=== PATIENT | female | born 1960 | race Two or more races ===

== ENCOUNTER 2016-11-15 15:28 | Emergency (ER) | payer BC ==
--- NOTE | ~2016-11-15 | CT2 ---
[facility] A Service of [facility] RADIOLOGY TEXT RESULTS PATIENT: VANESSA CARR LOCATION: [facility] : 56 UNIT #: [id number] AGE: [address]: Benito Chowdhury DO SEX: F ORDER DR: [id number] [facility] [address] [place], [place] [address] [id number] MR#: [id number] Acc #: [id number] NAME: VANESSA CARR : 1960 SEX: F STUDY DATE/TIME: 11/15/2016 17:55 UNIT: [facility] ROOM: STUDY DESCRIPTION: CT Abd and Pelv W Cont Attending Physician: Benito Chowdhury D.O. Ordering Physician: Benito Chowdhury D.O. Primary Care Physician: Primary Care Physician No MEDICAL IMAGING REPORT This report is preliminary unless electronic signature is present EXAM CT scan of the abdomen and pelvis with contrast, 11/15/2016 HISTORY Left side abdominal pain extending to the back for 3 days with vomiting. TECHNIQUE Spiral CT was performed through the abdomen and pelvis following intravenous contrast administration only as per clinician request. This CT exam was performed with one or more of the following radiation dose reduction techniques: automatic exposure control, adjustment of mA and/or kV according to patient size, and iterative reconstruction. FINDINGS ABDOMEN: The exam is limited by the lack of oral contrast. There is no prior exam for comparison. The liver contains multiple low-density lesions characteristic of cysts. The spleen, pancreas, gallbladder and biliary tree, adrenal glands and kidneys are normal except for a small cyst on the left kidney. PELVIS FINDINGS: The gut, mesenteric and yazmin structures are normal. There is no free fluid in the abdomen or pelvis. The lung bases are normal. IMPRESSION Multiple hepatic cysts and a left renal cyst. Otherwise negative CT scan of the abdomen and pelvis. Exam is somewhat limited by the lack of oral contrast. Dictated by... [facility] A Service [facility] RADIOLOGY TEXT RESULTS PATIENT: VANESSA CARR LOCATION: [facility] : 56 UNIT #: [id number] AGE: [address]: Benito Chowdhury DO SEX: F ORDER DR: Vladislav Blackmon M.D. THIS IS AN ELECTRONICALLY VERIFIED REPORT Vladislav Blackmon M.D. at 11/16/2016 10:28 AM KELTON/marcial TD: 11/15/2016 22:57 JOB #: [id number] MEDICAL IMAGING REPORT Page 1 of 1 COPY
--- NOTE | ~2016-11-15 | EKG ---
PATIENT: VANESSA CARR UNIT #: [id number] Ventricular Rate: 76 BPM Atrial Rate: 76 BPM P-R Interval: 164 ms QRS Duration: 70 ms Q-T Interval: 372 ms QTC Calculation(Bezet): 418 ms P [place]: 59 degrees Calculated R [place]: -4 degrees Calculated T [place]: 22 degrees Diagnosis Line: Normal sinus rhythm Diagnosis Line: Normal ECG Diagnosis Line: Diagnosis Line: Confirmed by CARLTON AVERY MD ([id number]) on 11/16/2016 Diagnosis Line: 10:38:23 PM INTERPRETING MD: GENA HOPE
[~2016-11-15 15:28] MED LIST: PHENERGAN25 MG PO; PRILOSEC20 MG DOB
[2016-11-15 15:47] LABS: BASOPHIL% 0.7 % (0-2.5); EOSINOPHIL# 0.3 X10e3 (0-0.7); EOSINOPHIL% 5.5 % (0.0-7.0); HEMATOCRIT 42.1 % (35.0-45.0); HEMOGLOBIN 13.9 gm/dL (12.0-16.0); MEAN CELL VOLUME 87.2 FL (83-96); MEAN CORPUSCULAR HEMOGLOBIN 28.9 PG (28-34); MEAN CORPUSCULAR HGB CONC 33.1 g/dL (30-36); MEAN PLATELET VOLUME 9.2 FL (6.5-11.5); MONOCYTE# 0.5 X10e3 (0-1.0); MONOCYTE% 8.3 % (3.0-12.0); NEUTROPHIL# 3.1 X10e3 (1.5-7.1); NEUTROPHIL% 51.5 % (40-75); PLATELET COUNT 211 X10e3 (140-420); RED BLOOD COUNT 4.82 X10e (3.90-5.30); RED CELL DISTRIBUTION WIDTH 13.9 % (11.0-15.5)
[2016-11-15 15:48] LABS: DIFF IND NO
[2016-11-15 15:52] LABS: POC - CKMB <1.0 ng/mL (0.0-7.9); POC - TROPONIN <0.05 ng/mL (<=0.05)
[2016-11-15 15:59] LABS: URINE SOURCE CLEAN CATCH
[2016-11-15 16:07] LABS: URINE APPEARANCE CLOUDY; URINE BILIRUBIN NEG (NEG); URINE BLOOD NEG (NEG); URINE COLOR YELLOW; URINE GLUCOSE NEG (NEG); URINE KETONE NEG (NEG); URINE LEUKOCYTE ESTERASE NEG (NEG); URINE NITRATE NEG (NEG); URINE PH 5.5 (5-8); URINE PROTEIN NEG (NEG); URINE SPECIFIC GRAVITY 1.027 (1.003-1.035)
[2016-11-15 16:08] LABS: ALBUMIN SERUM 4.1 g/dL (3.5-5.0); ALKALINE PHOSPHATASE 71 U/L (32-92); ALT (SGPT) 15 U/L (10-40); AST (SGOT) 15 U/L (10-42); BILIRUBIN,TOTAL 0.6 mg/dL (0.2-2.0); BLOOD UREA NITROGEN 22 mg/dL (9-23); BUN/CREATININE RATIO 24.44; CALCIUM SERUM 9.3 mg/dL (8.4-10.2); CARBON DIOXIDE 27 mmol/L (22-31); CHLORIDE 104 mmol/L (100-111); CREATININE SERUM 0.9 mg/dL (0.6-1.4); GLUCOSE FASTING 95 mg/dL (70-110); LIPASE 26 U/L (22-51); POTASSIUM 3.5 mmol/L (3.5-5.1); PROTEIN TOTAL SERUM 7.4 g/dL (6.0-8.3); SODIUM 138 mmol/L (135-145)
[2016-11-15 16:09] LABS: BILIRUBIN, DIRECT <0.1 mg/dL (0.0-0.2); BILIRUBIN,INDIRECT 0.5 mg/dL (0.0-0.9)
[2016-11-15 16:12] LABS: CULTURE INDICATED? NO
== END 2016-11-15 20:44 | disposition home or self-care (01) ==
LOC: CED 15:28
PROVIDERS: Emergency Medicine
DX: R10.10 Upper abdominal pain, unspecified (principal)
CPT/HCPCS: 36415; 74177; 80048; 80076; 81003; 82553; 83690; 84484; 85025; 85379; 93005; 96374; 96375; 99284; J2405; Q9967